=== PATIENT | male | born 1940 | race Caucasian/White ===

== ENCOUNTER 2016-10-08 10:22 | Emergency (ER) | payer MEDICARE, BC ==
[~2016-10-08 10:22] MED LIST: AMIO200T PO; ASPI81TA11 PO; ATOR40TA16 PO; FURO10IN IV PUSH; HYDR10TA23 PO; ISOS20TA2 PO; METO25TA3 PO; MULT1TAB46 PO; OMEP20TA PO; PLAV75TA29 PO; SYMB80AE INH; VENTAER INH; VITA10003 PO; [UNRECOGNIZED DRUG - CODE] IV/SQ
[2016-10-08 10:24] VITALS: BP 148/66; PULSE 77; RESP 12; TEMP 97.7; O2SAT 99
[2016-10-08] MEDS ORDERED: PACE400T PO (12:17)
[2016-10-08] MEDS ORDERED: TOPR50TA PO (12:17)
[2016-10-08] MEDS ORDERED: VITA500T PO (12:17)
[2016-10-08] MEDS ORDERED: PROS5TAB PO (12:17)
[2016-10-08] MEDS ORDERED: OXYB5TAB10 PO (12:17)
[2016-10-08] MEDS ORDERED: ATOR1TAB18 PO (12:17)
[2016-10-08] MEDS ORDERED: ASPI1TAB91 PO (12:17)
[2016-10-08] MEDS ORDERED: FURO1TAB62 PO (12:17)
[2016-10-08] MEDS ORDERED: OMEP10CA PO (12:17)
[2016-10-08] MEDS ORDERED: COQ-100C2 PO (12:17)
[2016-10-08] MEDS ORDERED: TRAZ100T4 PO (12:17)
--- NOTE | 2016-10-08 13:26 | PD ---
HPI Chief Complaint: Complaint Time Seen by Provider: 12:03 Travel History International Travel<30 days: No Contact w/Intl Traveler<30days: No Traveled to known affect area: No History of Present Illness HPI This patient came to the emergency room because the bag of his Welsh catheter tore it was leaking urine. He's had hematuria for couple of weeks and is working on getting urology follow-up. He takes both aspirin and Plavix for major cardiac history with stents and a recent AICD pacer placement. He doesn' t have any specific physical complaints today that are new. He does have hematuria but that's been going on for some time. Symptoms severity is mild. PFSH Past Medical History Hx Anticoagulant Therapy: Yes (PLAVIX) Autoimmune Disease: No Heart Rhythm Problems: Yes Cancer: No Cardiovascular Problems: Yes High Cholesterol: Yes Congestive Heart Failure: Yes Diabetes: Yes Patient Takes Glucophage: No Endocrine: Yes Gastrointestinal Disorders: Yes (hernia ) Genitourinary: Yes (difficulty with urination, incomplete emptying often) Hypertension: Yes Immune Disorder: No Implanted Vascular Access Dvce: Yes Musculoskeletal: No Neurologic: No Psychiatric: No Reproductive: No Respiratory: Yes Myocardial Infarction: Yes Thyroid Disease: No Triglycerides - High: Yes Tetanus Vaccination: < 5 Years Influenza Vaccination: Yes Past Surgical History Abdominal Aneurysm Repair: Yes Body Medical Devices: CABG, AAA STENTS Cardiac Surgery: Yes (CABG x2, abdominal surgery for AAA, mitral valve replament ) Coronary Artery Bypass Graft: Yes Pacemaker: Yes Valve Replacement: Yes Other Surgery: Yes (bypass) Social History Alcohol Use: No Tobacco Use: No Substance Use: No Allergies-Medications (Allergen,Severity, Reaction): Coded Allergies: No Known Allergies (Unverified , 10/08/16) Reported Meds & Prescriptions Reported Meds & Active Scripts Active Plavix (Clopidogrel Bisulfate) 75 Mg Tab 75 Mg PO DAILY Reported Vitamin C (Ascorbic Acid) 500 Mg Tab 500 Mg PO BID Trazodone (Trazodone HCl) 100 Mg Tab 100 Mg PO HS Ditropan (Oxybutynin Chloride) 5 Mg Tab 5 Mg PO TID PRN Toprol XL (Metoprolol Succinate) 50 Mg Tab 50 Mg PO DAILY Lasix (Furosemide) 20 Mg Tab 20 Mg PO BID Proscar (Finasteride) 5 Mg Tab 5 Mg PO DAILY Do not crush. Coq-10 (Coenzyme Q10 (Ubidecarenone)) 100 Mg Cap 100 Mg PO DAILY Aspirin Adult Low Strength (Aspirin) 81 Mg Tabdr 81 Mg PO DAILY Pacerone (Amiodarone HCl) 400 Mg Tab 400 Mg PO DAILY Atorvastatin (Atorvastatin Calcium) 80 Mg Tab 80 Mg PO HS Omeprazole 10 Mg Cap 20 Mg PO DAILY Symbicort Inh (Budesonide/Formoterol Fumarate) 80-4.5 Mcg/Act Aero 2 Puff INH Q12HR Ventolin Hfa 18 GM Inh (Albuterol Sulfate) 90 Mcg/Act Aer 2 Puff INH Q4-6H PRN Vitamin D-3 (Cholecalciferol) 1,000 Unit Tab 1,000 Units PO DAILY Review of Systems HENT: No: Headaches Cardiovascular: No: Chest Pain or Discomfort Respiratory: No: Cough Physical Exam Narrative GASTROINTESTINAL: Abdomen soft, non-tender, nondistended. Positive bowel sounds. No hepato-splenomegaly, or palpable masses. No guarding. SKIN: Inspection shows no rash or ulcers. Palpation shows no induration or nodules. Data Data Last Documented VS Vital Signs Date Time Temp Pulse Resp B/P Pulse Ox O2 Delivery O2 Flow Rate FiO2 10/08/16 12:02 66 18 10/08/16 10:24 97.7 148/66 99 Room Air MDM Medical Decision Making Medical Screen Exam Complete: Yes Emergency Medical Condition: Yes Medical Record Reviewed: Yes Differential Diagnosis Welsh catheter malfunction, hematuria, displaced catheter Narrative Course I have reviewed the patient's electronic medical record. The nurse replaced the tubing and bag portion of the Welsh catheter but left the portion that was inside the urethra and bladder as is He is stable for outpatient urology follow-up Diagnosis Primary Impression: Complication of Welsh catheter Qualified Code: T83.9XXA - Complication of Welsh catheter, initial encounter Additional Impression: Hematuria Additional Instructions: Follow-up with primary care and urology Med/Other Pt SpecificInfo: Other Disposition: 01 DISCHARGE HOME Condition: Stable Edmundo Mae MD Oct 08, 2016 13:26
[2016-10-08 13:28] VITALS: BP 130/76; TEMP 98.1
== END 2016-10-08 13:28 | disposition home or self-care (01) ==
LOC: NEPD 10:22
DX: T83.018A Breakdown (mechanical) of other urinary catheter, initial encounter (principal); R31.9 Hematuria, unspecified; E78.00 Pure hypercholesterolemia, unspecified; E11.9 Type 2 diabetes mellitus without complications; I10 Essential (primary) hypertension; Z79.01 Long term (current) use of anticoagulants
CPT/HCPCS: 99283